=== PATIENT | male | born 1965 | race Two or more races ===

== ENCOUNTER 2016-06-14 23:44 | Emergency (ER) | payer OTHER ==
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
== END 2016-06-15 02:05 | disposition home or self-care (01) ==
LOC: CED 23:44
DX: S16.1XXA Strain of muscle, fascia and tendon at neck level, initial encounter (principal); S29.012A Strain of muscle and tendon of back wall of thorax, initial encounter; S39.012A Strain of muscle, fascia and tendon of lower back, initial encounter; F17.210 Nicotine dependence, cigarettes, uncomplicated; V49.40XA Driver injured in collision with unspecified motor vehicles in traffic accident, initial encounter; Y93.89 Activity, other specified; Y92.410 Unspecified street and highway as the place of occurrence of the external cause
CPT/HCPCS: 72040; 72072; 99284

== ENCOUNTER 2016-06-19 10:44 | Emergency (ER) | payer OTHER | END 2016-06-19 11:35 | disposition home or self-care (01) | LOC: CED 10:44 | DX: S16.1XXA Strain of muscle, fascia and tendon at neck level, initial encounter (principal); S29.012A Strain of muscle and tendon of back wall of thorax, initial encounter; S39.012A Strain of muscle, fascia and tendon of lower back, initial encounter; R51 Headache; F17.200 Nicotine dependence, unspecified, uncomplicated; V49.00XA Driver injured in collision with unspecified motor vehicles in nontraffic accident, initial encounter | CPT/HCPCS: 99283 ==